=== PATIENT | female | born 1965 | race Caucasian/White ===

== ENCOUNTER → 2018-02-28 | Outpatient (CLI) | payer OTHER ==
--- NOTE | 2018-02-28 13:39 | RADIOLOGY REPORT (SQ) ---
EXAM DESCRIPTION: MRI CERVICAL SPINE WITHOUT COMPLETED DATE/TIME: 02/28/2018 1:14 pm REASON FOR STUDY: M50.30 OTHER CERVICAL DISC DEGENERATION, UNSP CERVICAL REGION M50.30 OTHER CERVIC AL DISC DEGENERATION, UNSP CERVICAL REGIO COMPARISON: None. TECHNIQUE: Sagittal and Axial imaging includes T1, T2, STIR and gradient echo sequences. LIMITATIONS: None. FINDINGS: ALIGNMENT: Normal. VERTEBRAE: Intact. BONE MARROW: Normal. No marrow replacement or reactive changes. DISCS: Normal. No significant abnormal signal or loss of height. HARDWARE: None in the spine. CORD AND BASE OF BRAIN: Normal in size and signal intensity. SOFT TISSUES: No soft tissue masses. C1-C2: No significant spinal stenosis. C2-C3: No significant spinal stenosis or exit foraminal stenosis. C3-C4: Shallow broad-based disc/osteophyte complex that narrows the anterior CSF space. There is no central canal or foraminal stenosis. C4-C5: Broad-based disc/osteophyte complex with left paracentral disc protrusion that deforms the spi nal cord on the left. See image 67 series 8. C5-C6: Broad-based disc/osteophyte complex with slight right paracentral prominence that minimally di splaces the cord. C6-C7: No significant spinal stenosis or exit foraminal stenosis. C7-T1: No significant spinal stenosis or exit foraminal stenosis. UPPER THORACIC: Incompletely imaged. No significant spinal stenosis or exit foraminal stenosis. OTHER: No other significant finding. IMPRESSION: There are disc changes as described. Most significant finding is at C4-5 where there is a left paracentral disc protrusion with deformity of the spinal cord. TECHNICAL DOCUMENTATION: JOB ID: [id number] [employer]- All Rights Reserved Reading location - IP/workstation name: [email or web address]
== END ==
LOC: RAD 13:28
PROVIDERS: ATTEND Orthopaedic Surgery
DX: M50.30 Other cervical disc degeneration, unspecified cervical region (principal)
CPT/HCPCS: 72141